=== PATIENT | male | born 1950 ===

== ENCOUNTER → 2017-12-05 | Outpatient (CLI) | payer MEDICARE ==
--- NOTE | 2017-12-05 08:11 | US ---
EXAMINATION TYPE: US kidneys/renal and bladder DATE OF EXAM: 12/05/2017 COMPARISON: NONE CLINICAL HISTORY: R94.4 Abnormal Results of kidney function studies. Recent abnormal labs EXAM MEASUREMENTS: Right Kidney: 11.0 x 6.1 x 4.9 cm Left Kidney: 10.9 x 5.7 x 5.3 cm Large pt body habitus, difficult scan Right Kidney: Appeared wnl Left Kidney: Appeared wnl Bladder: Thickened, irregular wall Bilateral Jets seen: Yes There is no evidence for hydronephrosis at this point in time. No nephrolithiasis is seen. No cat s are identified. The urinary bladder is not greatly distended and is thus suboptimally evaluated. B ladder wall is mildly thickened at 9 mm even for poorly distended bladder. Bilateral ureteral jets ar e seen. IMPRESSION: No hydronephrosis is evident bilaterally. Mild abnormal bladder wall thickening, correlate clinically to exclude cystitis otherwise consider other etiologies such as outlet obstruction from enlarged pro state gland. Correlate clinically for underlying BPH.
== END | disposition home or self-care (01) ==
LOC: RADUSWWP 06:44
PROVIDERS: ATTEND Family Medicine
DX: N32.89 Other specified disorders of bladder (principal)
CPT/HCPCS: 76770

== ENCOUNTER 2017-12-14 20:59 | Emergency (ER) | payer OTHER, MEDICARE ==
[2017-12-14 21:17] VITALS: RESP 18; TEMP 99
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
[2017-12-14 22:52] VITALS: BP 178/87; PULSE 82
== END 2017-12-14 22:51 | disposition home or self-care (01) ==
LOC: EC 20:59
DX: M54.2 Cervicalgia (principal); R40.2412 Glasgow coma scale score 13-15, at arrival to emergency department; I10 Essential (primary) hypertension; M54.5 Low back pain; M25.531 Pain in right wrist; M25.561 Pain in right knee; M25.562 Pain in left knee; E11.9 Type 2 diabetes mellitus without complications; G47.30 Sleep apnea, unspecified; Z79.4 Long term (current) use of insulin; Z79.82 Long term (current) use of aspirin; Z79.899 Other long term (current) drug therapy; Z88.5 Allergy status to narcotic agent; Z99.89 Dependence on other enabling machines and devices; Z98.890 Other specified postprocedural states; V43.53XA Car driver injured in collision with pick-up truck in traffic accident, initial encounter; Y92.009 Unspecified place in unspecified non-institutional (private) residence as the place of occurrence of the external cause
CPT/HCPCS: 99283

== ENCOUNTER → 2018-02-21 | Outpatient (CLI) | payer MEDICARE ==
--- NOTE | 2018-02-21 07:59 | US ---
EXAMINATION TYPE: US bladder DATE OF EXAM: 02/21/2018 COMPARISON: NONE CLINICAL HISTORY: 67-year-old male R94.4 Abnormal Results of kidney function test. TECHNIQUE: Multiple sonographic images of the bladder are obtained. FINDINGS: Bladder is somewhat trabecular appearance. Mild circumferential wall thickening of 6 mm. Post Void Residual Volume: 227.4 mL Color Doppler performed to assess ureteral jets. Bilateral Jets seen: yes Normal Post Void Residual (less than 50ml): no IMPRESSION: Slightly thickened bladder wall with trabeculated appearance possibly due to chronic bladder outlet o bstruction. The postvoid residual bladder volume is significantly elevated (nearly 230 mL). Findings compatible with urinary retention.
== END | disposition home or self-care (01) ==
LOC: RADUSWWP 06:43
PROVIDERS: ATTEND Family Medicine
DX: N32.89 Other specified disorders of bladder (principal)
CPT/HCPCS: 76857

== ENCOUNTER → 2020-01-09 | Outpatient (CLI) | payer MEDICARE ==
--- NOTE | 2020-01-09 12:46 | CONS ---
CONSULTATION DATE OF SERVICE: 01/09/2020 69-year-old gentleman who has been evaluated in Sleep Center for obstructive sleep apnea-hypopnea syndrome. HISTORY OF PRESENT ILLNESS SLEEP WAKE EVALUATION: Patient has been diagnosed with obstructive sleep apnea about 20 years ago. Never repeat any sleep study since that time. He continues to use his machine. Machine is old. CPAP pressure in the machine 8 cm of water. Since sleep study 20 years ago, the patient increased his weight significantly from 190 pounds up to 262 pounds today. He wakes up from sleep once with nocturia. He may have episodes of sleepiness during the day. [place] Sleepiness Scale is 8. His sleep schedule from midnight until 8 a.m. No problems with falling asleep. No history of hypnagogic hallucinations, sleep paralysis or cataplexy. He may take additional nap around 1:00 pm. PAST MEDICAL HISTORY: Hypertension, diabetes mellitus, hyperlipidemia, recently was diagnosed with stage 3 kidney disease. PAST SURGICAL HISTORY: Several surgeries for skin CA including squamous cell carcinoma and basal cell carcinoma, hemorrhoidectomy, right knee surgery for meniscus problems, left knee arthroscopic surgery. MEDICATIONS: amlodipine, chlorthalidone, finasteride, Lantus, Lipitor, lisinopril, metformin, niacinamide, NovoLog, and vitamin supplement. FAMILY HISTORY: Hypertension, heart problems, stroke, snoring, diabetes, mental illness. REVIEW OF SYSTEMS: Sometimes awakenings from sleep, some times episodes of sleepiness during the day. PHYSICAL EXAM: gentleman without distress. BP 144/79, HR 91, RR 15, height 5' 9" and one third, weight 262.8, body mass index 38.3, temperature 97.8, oxygen saturation at room air 97%. HEENT: PERRLA, EOMI. Evaluation of oropharynx showed tongue protrudes midline. Extremely low position of soft palate. Mallampati 4. NECK: Wide neck, 18 inch in circumference. Supple, no JVD. Thyroid is not palpable. LUNGS: Clear to percussion and to auscultation. Good air exchange. No wheezing or rhonchi. HEART: S1, S2 regular. No murmurs, gallops, or rubs. ABDOMEN: Obese. Soft and nontender. Bowel sounds are present. No organomegaly appreciated. EXTREMITIES: No clubbing or cyanosis. DISPATCH CLERK: Awake, alert, and oriented X3. Cranial nerves 2 to 7 intact. There is no fasciculation or atrophy. noted. No focal deficits observed. IMPRESSION: 1. History of obstructive sleep apnea-hypopnea syndrome for 20 years. Patient is on treatment with CPAP. Significantly increased his weight around 72 pounds since study was done 20 years ago. CPAP unit is old. The patient never repeat any sleep testing for 20 years. Extremely low position of soft palate, Mallampati 4 wide neck, obstructive sleep apnea-hypopnea syndrome. 2. Obesity BMI 38.3. 3. Hypertension. 4. Diabetes mellitus. 5. Hyperlipidemia. 6. History of stage 3 kidney disease diagnosed recently. 7. Status post surgical treatment for squamous cell carcinoma and basal cell carcinomas of the skin. 8. Status post hemorrhoidectomy. 9. History of mononucleosis. 10.Status post left knee arthroscopic surgery. 11.Status post right knee surgery for meniscus problems. PLAN: 1. Sleep study for evaluation of the patient breathing at the present time. The previous sleep study was done in another institution 20 years ago. 2. CPAP if necessary BiPAP titration for correction of patient's respiratory abnormalities and subsequently to get new PAP equipment. 3. Losing weight. 4. Sleep hygiene with regular time in bed for at least 7 1/2 to 8 hours. 5. No driving if feeling sleepiness. Thank you very much for referring this patient for consultation. Sincerely, James Solano MD, PhD, FAASM Diplomat of [employer] [facility] [place] MMODL / IJN: [id number] /
== END | disposition home or self-care (01) ==
LOC: SLEEP 11:10
PROVIDERS: ATTEND Internal Medicine
DX: G47.33 Obstructive sleep apnea (adult) (pediatric) (principal); E66.9 Obesity, unspecified; Z68.38 Body mass index [BMI] 38.0-38.9, adult; I10 Essential (primary) hypertension; E11.9 Type 2 diabetes mellitus without complications; E78.5 Hyperlipidemia, unspecified; Z87.448 Personal history of other diseases of urinary system; Z85.828 Personal history of other malignant neoplasm of skin; Z98.890 Other specified postprocedural states; Z99.89 Dependence on other enabling machines and devices; Z79.84 Long term (current) use of oral hypoglycemic drugs; Z79.4 Long term (current) use of insulin; Z79.899 Other long term (current) drug therapy
CPT/HCPCS: 99211

== ENCOUNTER → 2020-07-29 | Outpatient (CLI) | payer OTHER ==
--- NOTE | 2020-07-29 20:16 | SFUN ---
SLEEP CENTER FOLLOW UP NOTE DATE OF SERVICE: 07/29/2020 This is a 70-year-old gentleman who has been followed in Sleep Center for treatment of obstructive sleep apnea-hypopnea syndrome. Recently the patient had a polysomnogram and CPAP titration which showed that he has obstructive sleep apnea. On CPAP his respiration normalized. I order for him a CPAP unit, and today is his first visit after he started using CPAP equipment. The patient is able to use CPAP equipment every night. He feels better with the machine, sleeping better, and feels better during the day. [place] Sleepiness Scale today is 4. I checked his CPAP unit. Range of pressure is 5 to 12. Usage 30 nights for more than 4 hours with average usage 8.8 hours per night. Mask fit 99%. Apnea-hypopnea index is 8.1. Percent of periodic breathing 8%; 90% pressure 8.8. MEDICATIONS: Alfuzosin, amlodipine, chlorthalidone, finasteride, Lantus, Lipitor, lisinopril, metformin, niacinamide, vitamins. PHYSICAL EXAMINATION: GENERAL: A pleasant patient in no distress. VITAL SIGNS: BP 156/81, HR 92, RR 15, weight 260.8, temperature 98.0, oxygen saturation at room air 95%. HEENT: PERRLA, EOMI. Evaluation of oropharynx showed tongue protrudes midline. Extremely low position of soft palate. Mallampati IV. NECK: Supple. No JVD. Thyroid is not palpable. LUNGS: Clear to percussion and to auscultation. Good air exchange. No wheezing or rhonchi. HEART: S1, S2 regular. No murmurs, gallops or rubs. ABDOMEN: Obese. EXTREMITIES: No clubbing or cyanosis. FUND ACCOUNTANT: Awake, alert, and oriented X3. Cranial nerves 2 to 7 intact. There is no fasciculation or atrophy. noted. No focal deficits observed. IMPRESSION: 1. Obstructive sleep apnea-hypopnea syndrome. The patient demonstrated good compliance with treatment, benefitting from treatment. 2. By machine reading, amount of periodic breathing 8%. 3. Obesity. 4. Hypertension. 5. Diabetes mellitus. 6. Hyperlipidemia. 7. History of stage 3 kidney disease. 8. Status post surgical treatment for squamous cell carcinoma and basal cell carcinoma of the skin. 9. Status post hemorrhoidectomy. 10.History of mononucleosis. 11.Status post left knee arthroscopic surgery. 12.Status post right knee surgery for meniscus problems. PLAN: 1. I increased the maximal pressure to the range of 14 cm of water. The machine is in automatic regimen. Range of pressure 5 to 14. 2. Patient will continue to use PAP equipment every night for the whole night. 3. Sleep hygiene with regular time in bed for at least 7-1/2 to 8 hours. 4. Precautions related to driving. No driving if feeling sleepiness. 5. I will maintain all necessary prescription for PAP supplies including mask, tube, filters. 6. Watching weight. 7. No driving if feeling sleepiness. 8. Follow-up visit in 6 months or earlier if patient has any problems. Thank you very much for allowing me to participate in the management of your patient. Sincerely, James Solano MD, PhD, FAASM Diplomat of [employer] [facility] [place] MMODL / FRANCOISEN: [id number] /
== END ==
LOC: SLEEP 14:32
PROVIDERS: ATTEND Internal Medicine
DX: G47.33 Obstructive sleep apnea (adult) (pediatric) (principal); E78.5 Hyperlipidemia, unspecified; I12.9 Hypertensive chronic kidney disease with stage 1 through stage 4 chronic kidney disease, or unspecified chronic kidney disease; E11.22 Type 2 diabetes mellitus with diabetic chronic kidney disease; N18.30 Chronic kidney disease, stage 3 unspecified; E66.9 Obesity, unspecified; Z96.652 Presence of left artificial knee joint; Z86.19 Personal history of other infectious and parasitic diseases; Z85.828 Personal history of other malignant neoplasm of skin; Z98.890 Other specified postprocedural states; Z79.84 Long term (current) use of oral hypoglycemic drugs; Z79.899 Other long term (current) drug therapy

== ENCOUNTER 2020-08-19 07:03 | Day surgery (SDC) | payer MEDICARE, OTHER ==
[2020-08-14 13:41] VITALS: BMI 38.1
[~2020-08-19 07:03] MED LIST: LACTATED RINGERS 1,000 ML IV SCH
[2020-08-19 07:33] VITALS: TEMP 98.5
[2020-08-19] MEDS ORDERED: LIDOCAINE 1% (10MG/ML) FOR IV START INTRADERMA ONE (07:45)
[2020-08-19 07:48] LABS: Glucose,Whole Blood 133 mg/dL (75-99)
[2020-08-19] MEDS ORDERED: PROPOFOL 10 MG/ML 20 ML VIAL IV ONE (07:59)
--- NOTE | 2020-08-19 08:19 | P.PCN ---
Date of Procedure: 08/19/20 Procedure(s) Performed: BRIEF HISTORY: Patient is a 70-year-old pleasant white male scheduled for an elective colonoscopy as a part of evaluation of positive cologuard. PROCEDURE PERFORMED: Colonoscopy snare polypectomy. PREOPERATIVE DIAGNOSIS: Positive cologuard. IV sedation per Anesthesia. PROCEDURE: After informed consent was obtained, the patient, was brought into the endoscopy unit. IV sedation was administered by Anesthesia under continuous monitoring. Digital rectal examination was normal. Initially the Olympus CF-160 flexible video colonoscope was then inserted in the rectum, gradually advanced into the cecum without any difficulty. Careful examination was performed as the scope was gradually being withdrawn. Ileocecal valve and the appendiceal orifice were visualized and appeared normal. Prep was excellent. Mucosa of the cecum, appeared normal. In the ascending colon there was a 5 mm sessile polyp removed by snare polypectomy. In the transverse colon there was a 3 mm sessile polyp removed by snare polypectomy. Rest of the ascending colon, transverse colon, descending colon, sigmoid colon, and rectum appeared normal. In the distal rectum there were 2 polyps measuring 3 mm and 5 mm in size both of which were removed by snare polypectomy. Retroflexion was performed in the rectum and no lesions were seen. The patient tolerated the procedure well. IMPRESSION: 5 mm ascending colon polyp status post polypectomy 3 mm transverse colon polyp status post polypectomy 3 mm and 5 mm rectal polyp status post polypectomy RECOMMENDATIONS: Findings of this examination were discussed with the patient as well as his family. He was advised to follow with the biopsy results. If the biopsy reveals adenoma he can have a repeat colonoscopy in 5 years.
[2020-08-19 08:52] VITALS: BP 124/68; PULSE 71; RESP 18
[2020-08-19 08:53] LABS: Glucose,Whole Blood 132 mg/dL (75-99)
== END 2020-08-19 08:52 | disposition home or self-care (01) ==
LOC: ORWHC2ENDO 07:03
PROVIDERS: ATTEND Internal Medicine Gastroenterology
DX: R19.5 Other fecal abnormalities (principal); D12.2 Benign neoplasm of ascending colon; K63.5 Polyp of colon; K62.1 Rectal polyp; I10 Essential (primary) hypertension; E78.5 Hyperlipidemia, unspecified; G47.33 Obstructive sleep apnea (adult) (pediatric); Z99.89 Dependence on other enabling machines and devices; E11.9 Type 2 diabetes mellitus without complications; Z79.4 Long term (current) use of insulin; Z79.899 Other long term (current) drug therapy; Z91.09 Other allergy status, other than to drugs and biological substances
CPT/HCPCS: 88305; 45385; J2704

== ENCOUNTER 2022-05-10 21:20 | Emergency (ER) | payer MEDICARE, OTHER ==
[2022-05-10] MEDS ORDERED: MORPHINE SULFATE 2 MG/ML SYRINGE IM ONE (22:05)
--- NOTE | 2022-05-10 22:41 | XR ---
EXAMINATION TYPE: XR femur RT DATE OF EXAM: 05/10/2022 10:25 PM INDICATION: Patient age:Male; 71 years old; Reason for study: fall, pain; COMPARISON: None TECHNIQUE: The right femur was examined in frontal and lateral projections. FINDINGS: Underpenetration of the proximal femur secondary to overlapping soft tissues. No evidence o f acute osseous pathology, joint dislocation, or soft tissue swelling. Degeneration changes of the kn ee with joint space narrowing and osteophyte formation. IMPRESSION: 1. No acute osseous pathology. 2. Moderate right knee osteoarthrosis.
[2022-05-10] MEDS ORDERED: ACET/COD 300 MG/30 MG STARTER PACK 6 TAB BTL PO STA (23:50)
--- NOTE | 2022-05-11 00:01 | ED ---
Lower Extremity Injury HPI - General Chief Complaint: Extremity Injury, Lower Stated Complaint: fall Time Seen by Provider: 05/10/22 21:35 Source: patient Mode of arrival: wheelchair Limitations: no limitations - History of Present Illness Initial Comments: 71-year-old male presents to the emergency department with complaint of pain to his right femur. He fell down some bleachers while at a sporting event. States that he fell onto his right side. Denies hitting his head. No loss of consciousness. Denies any neck or back pain. He has pain to the distal femur. He has been unable to weight-bear. EMS were called to the scene. They did assist in getting the patient into a private vehicle and he came in the front door. He did not take anything for pain control before coming in. [facility] He denies any numbness or tingling in his lower extremity. Denies any pelvic pain. No abdominal pain. No pain in his upper extremity. No other alleviating, precipitating or modifying factors - Related Data Home Medications Medication Instructions Recorded Confirmed Aspirin 81 mg PO DAILY 07/08/14 08/19/20 Multivitamins, Thera [Multivitamin 1 tab PO HS 07/08/14 08/19/20 (formulary)] Atorvastatin [Lipitor] 40 mg PO HS 12/14/17 08/19/20 Insulin Aspart [NovoLOG Flexpen] 15 units SQ TID-W/MEALS 12/14/17 08/19/20 Insulin Glargine [Lantus Vial] 60 unit SQ HS 12/14/17 08/19/20 Niacinamide 1 tab PO BID 12/14/17 08/19/20 Secretary-3 Fatty Acids/Fish Oil [Fish 1 cap PO HS 12/14/17 08/19/20 Oil 1,000 mg Softgel] lisinopriL [Zestril] 10 mg PO QAM 12/14/17 08/19/20 metFORMIN HCL [Glucophage] 1,000 mg PO HS 12/14/17 08/19/20 Alfuzosin HCl [Uroxatral ER] 10 mg PO HS 08/14/20 08/19/20 Chlorthalidone 25 mg PO DAILY 08/14/20 08/19/20 Empagliflozin [Jardiance] 10 mg PO DAILY 08/14/20 08/19/20 Finasteride [Propecia] 1 mg PO DAILY 08/14/20 08/19/20 amLODIPine [Norvasc] 5 mg PO BID 08/14/20 08/19/20 Previous Rx's Medication Instructions Recorded HYDROcodone/APAP 7.5-325MG [[place] 1 tab PO Q4HR PRN 3 Days #18 tab 05/10/22 7.5-325] Allergies Allergy/AdvReac Type Severity Reaction Status Date / Time meperidine HCl [From Demerol] Allergy Anaphylaxis Verified 08/19/20 07:29 adhesive Allergy blisters Uncoded 08/19/20 07:29 skin-paper tape is ok Review of Systems ROS Statement: Those systems with pertinent positive or pertinent negative responses have been documented in the HPI. ROS Other: All systems not noted in ROS Statement are negative. Past Medical History Past Medical History: Diabetes Mellitus, Hypertension, Sleep Apnea/CPAP/BIPAP Additional Past Medical History / Comment(s): positive cologuard,cpap set at 5,received both Covid vaccines History of Any Multi-Drug Resistant Organisms: C-DIFF Date of last positivie culture/infection: 2016 MDRO Source:: stool Past Surgical History: Orthopedic Surgery Additional Past Surgical History / Comment(s): rt knee surgery, hemorrhoidectomy Past Anesthesia/Blood Transfusion Reactions: No Reported Reaction Past Psychological History: No Psychological Hx Reported Smoking Status: Never smoker - Past Family History Father Family Medical History: Cancer, Eye Disorder Additional Family Medical History / Comment(s): stomach CA, macular degeneration General Exam Limitations: no limitations General appearance: alert, in no apparent distress Head exam: Present: atraumatic, normocephalic, normal inspection Eye exam: Present: normal appearance, PERRL, EOMI. Absent: scleral icterus, conjunctival injection, periorbital swelling ENT exam: Present: normal exam, mucous membranes moist Neck exam: Present: normal inspection. Absent: tenderness, meningismus, lymphadenopathy Respiratory exam: Present: normal lung sounds bilaterally. Absent: respiratory distress, wheezes, rales, rhonchi, stridor Cardiovascular Exam: Present: regular rate, normal rhythm, normal heart sounds. Absent: systolic murmur, diastolic murmur, rubs, gallop, clicks GI/Abdominal exam: Present: soft, normal bowel sounds. Absent: distended, tenderness, guarding, rebound, rigid Extremities exam: Present: tenderness (distal femur on right. no identifiable deformity. Patient unable to fully extend at the hip. compartment soft. 2+ dP and PT pulses. no ecchymosis), normal capillary refill. Absent: pedal edema, joint swelling, calf tenderness Back exam: Present: normal inspection Neurological exam: Present: alert, oriented X3, CN II-XII intact Psychiatric exam: Present: normal affect, normal mood Skin exam: Present: warm, dry, intact, normal color. Absent: rash Course Vital Signs 05/10/22 05/11/22 21:31 00:15 Temperature 97 F L 98.1 F Pulse Rate 83 76 Respiratory 20 18 Rate Blood Pressure 116/75 110/69 O2 Sat by Pulse 96 98 Oximetry Medical Decision Making - Medical Decision Making Upon arrival patient was placed into room 15. History and physical exam was performed. Patient does have limited range of motion due to pain. Has difficulty with full extension. X-rays performed which demonstrates no acute fracture. There is concern for possible Quad strain. I did call and discuss the case with Dr. Romero. States that the patient should be placed in knee immobilizer and ambulate with crutches. He is given a prescription for pain medications. He is to ambulate with the crutches. Rest, ice and elevate the extremity. [facility] for possible further imaging return for any new or worsening symptoms. Patient agreeable to the treatment plan and the patient was discharged home in stable condition Disposition Clinical Impression: Right leg pain, Fall, Injury of quadriceps tendon Disposition: HOME SELF-CARE Condition: Stable Instructions (If sedation given, give patient instructions): Leg Sprain (ED) Additional Instructions: Please take the pain medications as directed. Do not weight bear. Ambulate with the crutches. Rest, ice and elevate the extremity. Call the orthopedic office in the morning to get an appointment. You may need further imaging to include an MRI. Wear the knee immobilizer and return for any new or worsening symptoms Prescriptions: HYDROcodone/APAP 7.5-325MG [[place] 7.5-325] 1 tab PO Q4HR PRN 3 Days #18 tab PRN Reason: Pain Is patient prescribed a controlled substance at d/c from ED?: Yes When asked, does pt state using other controlled substances?: No If prescribed controlled substance>3 days was MAPS reviewed?: Prescribed <3 Days Referrals: Juan Tamayo DO [Primary Care Provider] - 1-2 days Macario Romero MD [STAFF PHYSICIAN] - 1-2 days Time of Disposition: 00:01
[2022-05-11 00:16] VITALS: BP 110/69; PULSE 76; RESP 18; TEMP 98.1
== END 2022-05-11 00:42 | disposition home or self-care (01) ==
LOC: EC 21:20
DX: S76.101A Unspecified injury of right quadriceps muscle, fascia and tendon, initial encounter (principal); E11.9 Type 2 diabetes mellitus without complications; I10 Essential (primary) hypertension; Z88.5 Allergy status to narcotic agent; Z91.048 Other nonmedicinal substance allergy status; Z79.82 Long term (current) use of aspirin; Z79.4 Long term (current) use of insulin; Z79.84 Long term (current) use of oral hypoglycemic drugs; Z79.899 Other long term (current) drug therapy; W10.8XXA Fall (on) (from) other stairs and steps, initial encounter; Y92.39 Other specified sports and athletic area as the place of occurrence of the external cause
CPT/HCPCS: 73552; 99284; 96372; J2270